=== PATIENT | female | born 1995 | race Caucasian/White ===

== ENCOUNTER 2018-07-06 10:59 | Emergency (ER) | payer OTHER ==
[2018-07-06 11:19] VITALS: BMI 24.0
[2018-07-06 11:20] VITALS: O2SAT 98
--- NOTE | 2018-07-06 11:34 | ED PDOC ---
HPI: Allergic Reaction Time Seen by Provider: 07/06/18 11:14 Chief Complaint (Nursing): Abnormal Skin Integrity Chief Complaint (Provider): Rash History Per: Patient History/Exam Limitations: no limitations Onset/Duration Of Symptoms: Days (1 week) Additional Complaint(s): Pt. with rash to the chest, left eye brow, left arm. Is itchy. No pain. No new food, meds, lotion, or anything different/new. Denies any dyspnea, weakness , cough. Did not take anything for it. Past Medical History Reviewed: Nursing Documentation, Vital Signs Vital Signs: Last Vital Signs Temp 98.6 F 07/06/18 11:19 Pulse 63 07/06/18 11:19 Resp 17 07/06/18 11:19 BP 102/65 07/06/18 11:19 Pulse Ox 98 07/06/18 11:19 - Medical History PMH: No Chronic Diseases Denies: Chronic Kidney Disease - Surgical History Surgical History: No Surg Hx - Family History Family History: States: Unknown Family Hx - Immunization History Hx Tetanus Toxoid Vaccination: Yes (last year ) - Home Medications Home Medications: Ambulatory Orders Medication Instructions Recorded Famotidine [Pepcid] 20 mg PO Q12 #20 tab 09/19/16 Ibuprofen [Motrin Tab] 800 mg PO Q8 PRN #20 tab 11/27/16 DiphenhydrAMINE [Benadryl] 25 mg PO TID PRN 5 Days cap 07/06/18 predniSONE [predniSONE Tab] 20 mg PO BID 5 Days tab 07/06/18 - Allergies Allergies/Adverse Reactions: Allergies Allergy/AdvReac Type Severity Reaction Status Date / Time No Known Allergies Allergy Verified 09/19/16 09:40 Review of Systems Constitutional: Negative for: Weakness ENT: Negative for: Nose Pain, Mouth Pain Cardiovascular: Negative for: Chest Pain Gastrointestinal: Negative for: Nausea, Vomiting, Abdominal Pain Musculoskeletal: Negative for: Neck Pain Skin: Positive for: Rash Neurological: Negative for: Weakness, Numbness Physical Exam - Reviewed Nursing Documentation Reviewed: Yes Vital Signs Reviewed: Yes - Physical Exam Appears: Positive for: Non-toxic, No Acute Distress Head Exam: Positive for: ATRAUMATIC, NORMAL INSPECTION, NORMOCEPHALIC Skin: Positive for: Normal Color, Warm, DRY Eye Exam: Positive for: EOMI, PERRL, Other (L upper eye lid with mild erythema blanching; no dc, tenderness.) ENT: Positive for: Normal ENT Inspection Neck: Positive for: Normal, Painless ROM Cardiovascular/Chest: Positive for: Regular Rate, Rhythm, Chest Non Tender, Other (left chest and right chest with few patches of 1cm diameter erythema and scabs; no dc; is blanching; no induration, nontender) Respiratory: Positive for: CNT, Normal Breath Sounds Gastrointestinal/Abdominal: Positive for: Normal Exam, Soft Back: Positive for: Normal Inspection. Negative for: L CVA Tenderness, R CVA Tenderness Extremity: Positive for: Normal ROM. Negative for: Tenderness Neurologic/Psych: Positive for: Alert, Oriented - ECG O2 Sat by Pulse Oximetry: 98 Pulse Ox Interpretation: Normal - Progress ED Course And Treament: 1132: Stable. AAOx3. Improved symptoms. Pt. demanding blood work for rash. Advised there is no indication or specific test for her rash. Pt. advised to fu with clinic as she has no pcp. No pain. Disposition - Clinical Impression Clinical Impression: Dermatitis - Patient ED Disposition Is Patient to be Admitted: No Counseled Patient/Family Regarding: Diagnosis, Need For Followup, Rx Given - Disposition Referrals: [facility] [Outside] - 07/10/18 Disposition: Routine/Home Disposition Time: 11:33 Condition: STABLE Additional Instructions: Return if not better in 3 days. Prescriptions: DiphenhydrAMINE [Benadryl] 25 mg PO TID PRN 5 Days cap PRN Reason: Itching / Pruritus predniSONE [predniSONE Tab] 20 mg PO BID 5 Days tab Instructions: Dermatitis
[2018-07-06 12:21] VITALS: BP 128/78; PULSE 78; RESP 19; TEMP 97
== END 2018-07-06 12:21 | disposition home or self-care (01) ==
LOC: H.ER 10:59
DX: L30.9 Dermatitis, unspecified (principal)

== ENCOUNTER 2019-02-13 13:40 | Emergency (ER) | payer MEDICAID ==
[2019-02-13 13:41] VITALS: BMI 24.0
[2019-02-13 14:01] VITALS: BP 104/64; PULSE 85; RESP 14; TEMP 98.5; O2SAT 99
--- NOTE | 2019-02-13 15:15 | ED PDOC ---
History of Present Illness History of Present Illness: 23yo female, here with complaints of head congestion, bilateral ear pain, rhinorrhea and generalized weakness x 2 days. She reports an episode of diarrhea today and states she had a fever of 101.1. Patient reports the ear itchiness and nose congestion has been ongoing for a couple days and she has been using a q- tip multiple times during the day to alleviate itchiness. She did receive the flu vaccination this year. No nausea, vomiting, sick contacts. HPI: Influenza Time Seen by Provider: 02/13/19 14:52 Chief Complaint: Flu-like Symptoms Chief Complaint (Provider): Head congestion, ear pain History Per: Patient Exam Limitations: no limitations Have you had recent travel within the past 21 days to any of: No Onset/Duration Of Symptoms: Days (3) Hx Influenza Vaccination: Yes Past Medical History Reviewed: Historical Data, Nursing Documentation, Vital Signs Vital Signs: Last Vital Signs Temp 98.5 F 02/13/19 14:00 Pulse 85 02/13/19 14:00 Resp 14 02/13/19 14:00 BP 104/64 02/13/19 14:00 Pulse Ox 99 02/13/19 14:00 Primary Care Provider: Axel Irwin - Medical History PMH: No Chronic Diseases Denies: Chronic Kidney Disease - Surgical History Surgical History: No Surg Hx - Family History Family History: States: No Known Family Hx, Unknown Family Hx - Immunization History Hx Tetanus Toxoid Vaccination: Yes (last year ) - Home Medications Home Medications: Ambulatory Orders Medication Instructions Recorded Famotidine [Pepcid] 20 mg PO Q12 #20 tab 09/19/16 Ibuprofen [Motrin Tab] 800 mg PO Q8 PRN #20 tab 11/27/16 DiphenhydrAMINE [Benadryl] 25 mg PO TID PRN 5 Days cap 07/06/18 predniSONE [predniSONE Tab] 20 mg PO BID 5 Days tab 07/06/18 Cetirizine HCl [Zyrtec] 10 mg PO DAILY #30 tab.rapdis 02/13/19 Fluticasone Propionate [Flonase] 1 spr CHAVEZ DAILY #1 bottle 02/13/19 predniSONE [predniSONE Tab] 40 mg PO DAILY #10 tab 02/13/19 - Allergies Allergies/Adverse Reactions: Allergies Allergy/AdvReac Type Severity Reaction Status Date / Time No Known Allergies Allergy Verified 02/13/19 14:00 Review of Systems ROS Statement: Except As Marked, All Systems Reviewed And Found Negative Constitutional: Positive for: Fever ENT: Positive for: Ear Pain, Nose Congestion Respiratory: Positive for: Cough Gastrointestinal: Positive for: Diarrhea Physical Exam - Reviewed Nursing Documentation Reviewed: Yes Vital Signs Reviewed: Yes - Physical Exam Appears: Positive for: Non-toxic, No Acute Distress Head Exam: Positive for: ATRAUMATIC, NORMAL INSPECTION, NORMOCEPHALIC Skin: Positive for: Normal Color Eye Exam: Positive for: Normal appearance, EOMI, PERRL ENT: Positive for: TM Is/Are (TM's clear bilaterally; excoriations noted to external ear canal), Other (posterior ooropharynx with cobblestone appearance). Negative for: Pharyngeal Erythema, Tonsillar Exudate, Tonsillar Swelling Neck: Positive for: Supple Cardiovascular/Chest: Positive for: Regular Rate, Rhythm. Negative for: Tachycardia Respiratory: Positive for: Normal Breath Sounds. Negative for: Respiratory Distress Neurological/Psych: Positive for: Awake, Alert, Normal Tone Medical Decision Making Medical Decision Makinyo with most likely season allergies Ear pain secondary to q-tip use Will be discharged home with prescription for 5 day course of steroids, flonase, and zyrtec Informed to follow up with PMD ScribeAttestation: Documented byYenni Malave, acting as a scribe for Cony Guadarrama MD. Provider ScribeAttestation: All medical record entries made by the Scribe were at my direction and personally dictated by me. I have reviewed the chart and agree that the record accurately reflects my personal performance of the history, physical exam, medical decision making, and the department course for this patient. I have also personally directed, reviewed, and agree with the discharge instructions and disposition. - ECG O2 Sat by Pulse Oximetry: 99 Disposition - Clinical Impression Clinical Impression: Seasonal allergies - Disposition Disposition: Routine/Home Disposition Time: 15:19 Condition: STABLE Additional Instructions: Follow up with primary medical doctor. Return to the emergency department if symptoms worsen or if new symptoms develop. Take medications as prescribed. Prescriptions: Cetirizine HCl [Zyrtec] 10 mg PO DAILY #30 tab.rapdis Fluticasone Propionate [Flonase] 1 spr CHAVEZ DAILY #1 bottle predniSONE [predniSONE Tab] 40 mg PO DAILY #10 tab Instructions: Seasonal Allergies (DC) Forms: [employer] (Pashto), [facility] ED School/Work Excuse
== END 2019-02-13 17:21 | disposition home or self-care (01) ==
LOC: H.ER 13:40
DX: J30.2 Other seasonal allergic rhinitis (principal)